=== PATIENT | male | born 1995 | race African-American/Black ===

== ENCOUNTER 2023-01-04 19:10 | Emergency (ER) | payer MEDICAID ==
[~2023-01-04] VITALS: Ht 177.8 cm; Wt 83.5 kg
[2023-01-04 19:21] VITALS: O2SAT 100
[2023-01-04] MEDS ORDERED: IBUP-2029 MT (21:27)
[2023-01-04] MEDS ORDERED: ACETAMINOPHEN 325MG TABLET PO ONE (21:30)
[2023-01-04] MEDS ORDERED: IBUPROFEN 600MG TABLET PO ONE (21:30)
[2023-01-04 21:59] VITALS: BP 134/86; PULSE 99; RESP 16; TEMP 97.9
== END 2023-01-04 22:19 | disposition home or self-care (01) ==
LOC: ER 19:31
DX: R52 Pain, unspecified (principal)
CPT/HCPCS: 99283

== ENCOUNTER 2023-02-03 02:34 | Emergency (ER) | payer OTHER, MEDICAID ==
[~2023-02-03] VITALS: Ht 177.8 cm; Wt 82.4 kg
[~2023-02-03 02:34] MED LIST: IBUP-2029 MT
[2023-02-03 02:44] VITALS: PULSE 84; TEMP 98.1; O2SAT 100
[2023-02-03] MEDS ORDERED: ACETAMINOPHEN 325MG TABLET PO ONE (03:15)
[2023-02-03] MEDS ORDERED: LIDOCAINE 5% PATCH TOP SCH (03:15)
[2023-02-03] MEDS ORDERED: ACETAMINOPHEN 325MG TABLET PO NR (05:15)
[2023-02-03 05:18] VITALS: BP 145/93; RESP 18
[2023-02-03] MEDS ORDERED: NAPR-1176 MT (05:33)
[2023-02-03] MEDS ORDERED: METH-653 MT (05:33)
== END 2023-02-03 06:04 | disposition home or self-care (01) ==
LOC: ER 02:34
DX: M54.50 Low back pain, unspecified (principal)
CPT/HCPCS: 99283

== ENCOUNTER 2023-06-30 09:09 | Emergency (ER) | payer MEDICAID, OTHER ==
[~2023-06-30] VITALS: Ht 175.3 cm; Wt 91.0 kg
[~2023-06-30 09:09] MED LIST changes: +METH-653 MT; +NAPR-1176 MT
[2023-06-30 09:15] VITALS: BP 136/88; PULSE 104; RESP 18; TEMP 98.3; O2SAT 100
== END 2023-06-30 10:51 | disposition home or self-care (01) ==
LOC: ER 09:25
DX: F41.9 Anxiety disorder, unspecified (principal); I49.9 Cardiac arrhythmia, unspecified
CPT/HCPCS: 93005; 99283

== ENCOUNTER 2023-09-22 20:43 | Emergency (ER) | payer MEDICAID ==
[~2023-09-22] VITALS: Ht 172.7 cm; Wt 87.0 kg
[2023-09-22 20:51] VITALS: BP 124/70; PULSE 84; RESP 18; TEMP 98; O2SAT 100
[2023-09-23] MEDS ORDERED: BO1 TP (00:23)
[2023-09-23] MEDS ORDERED: BACITRACIN ZINC OINT UDPKT TOP ONE (00:30)
[2023-09-23] MEDS ORDERED: TETANUS, DIPHTHERIA, PERTUSSIS VAC/PF 0.5ML (>10YR OLD) IM ONE (00:30)
== END 2023-09-23 03:58 | disposition home or self-care (01) ==
LOC: ER 20:43
DX: F15.10 Other stimulant abuse, uncomplicated (principal); S91.111A Laceration without foreign body of right great toe without damage to nail, initial encounter; Z86.59 Personal history of other mental and behavioral disorders; X58.XXXA Exposure to other specified factors, initial encounter; Y93.89 Activity, other specified; Y92.89 Other specified places as the place of occurrence of the external cause; Y99.8 Other external cause status
CPT/HCPCS: 99282